=== PATIENT | female | born 1930 | race Caucasian/White ===

== ENCOUNTER 2017-06-30 09:37 | Emergency (ER) | payer MEDICARE ==
[~2017-06-30] VITALS: Ht 152.4 cm; Wt 39.6 kg
[2017-06-30] MEDS ORDERED: ondansetron/PF 4mg/2ml inj IV ONE (10:15)
[2017-06-30] MEDS ORDERED: normal saline 1000ML IV soln IVB ONE ×2 (10:15→11:30)
[2017-06-30] MEDS ORDERED: sucralfate 1gm/10ml UD suspension PO ONE (10:25)
[2017-06-30] MEDS ORDERED: mag hydrox/Alum hydrox/simeth 30ml oral suspension PO ONE (10:25)
[2017-06-30] MEDS ORDERED: LIDOcaine Viscous 15ml cup MM PRN (10:25)
[2017-06-30 10:46] LABS: CLARITY,URINE CLEAR (Clear); COLOR,URINE YELLOW (Yellow); GLUCOSE, URINE NEGATIVE (Neg); KETONES,URINE NEGATIVE (Neg); LEUKOCYTE ESTERASE ,URINE SMALL (Neg); NITRITES, URINE NEGATIVE (Neg); OCCULT BLOOD,URINE NEGATIVE (Neg); PROTEIN,URINE NEGATIVE (Neg); UROBILINOGEN,URINE 0.2 E.U/dL (0.2-1.0)
[2017-06-30 10:47] LABS: UA COLLECTION TYPE CLN CATCH MIDSTREAM
[2017-06-30 10:48] LABS: BASOPHILS % (AUTO) 0.1 % (0-1); EOSINOPHILS # (AUTO) 0.1 X10'3 (0-0.9); EOSINOPHILS % (AUTO) 1.6 % (0-6); HEMATOCRIT 35.7 % (35.0-45.0); HEMOGLOBIN 12.1 g/dl (12.0-16.0); LYMPHOCYTES # (AUTO) 1.2 X10'3 (1.1-4.8); LYMPHOCYTES % (AUTO) 22.4 % (21-51); MEAN CORPUSCULAR HEMOGLOBIN 30.4 PG (27.0-31.0); MEAN CORPUSCULAR HGB CONC 33.7 % (33.0-36.5); MEAN CORPUSCULAR VOLUME 90.1 FL (78-98); MEAN PLATELET VOLUME 9.3 FL (7.4-10.4); MONOCYTES # (AUTO) 0.5 X10'3 (0-0.9); MONOCYTES % (AUTO) 10.2 % (2-12); NEUTROPHILS # (AUTO) 3.5 X10'3 (1.8-7.7); NEUTROPHILS % (AUTO) 65.7 % (42-75); PLATELET COUNT 229 X10'3 (140-440); RED BLOOD COUNT 3.96 X10'6 (4.20-5.60); RED CELL DISTRIBUTION WIDTH 12.9 % (11.5-14.5); WHITE BLOOD COUNT 5.3 X10'3 (4.5-11.0)
[2017-06-30 10:52] LABS: INR 1.1 INR; PROTHROMBIN TIME 11.7 SECONDS (9.0-12.0)
[2017-06-30 10:54] LABS: BACTERIA,URINE FEW /HPF (Neg); MUCUS STRANDS FEW /LPF (Neg); RBC,URINE NONE SEEN /HPF (0-2); SQUAMOUS EPITHELIAL CELL,UR FEW /LPF (FEW); WBC CLUMPS,URINE FEW /HPF (NEGATIVE)
[2017-06-30 10:57] LABS: ALANINE AMINOTRANSFERASE 18 U/L (12-78); ALBUMIN 2.7 G/DL (3.4-5.0); ALKALINE PHOSPHATASE 36 IU/L (46-116); AMYLASE 33 U/L (25-115); ANION GAP 6 (8-16); ASPARTATE AMINO TRANSFERASE 28 U/L (10-37); BILIRUBIN,TOTAL 0.6 MG/DL (0.1-1.0); BLOOD UREA NITROGEN 50 MG/DL (7-18); BUN/CREATININE RATIO 30.9 (6.6-38.0); CALCIUM 7.8 MG/DL (8.5-10.1); CHLORIDE 102 MMOL/L (99-107); CREATININE 1.62 MG/DL (0.40-0.90); GLUCOSE 109 MG/DL (70-104); LIPASE 188 U/L (73-393); POTASSIUM 3.9 MMOL/L (3.5-5.1); SODIUM 135 MMOL/L (135-145); TOTAL CARBON DIOXIDE 27.1 MMOL/L (24-32); TOTAL PROTEIN 5.5 G/DL (6.4-8.2); eGFR 30 ML/MIN
[2017-06-30] MEDS ORDERED: CefTRIAXone 2gm/NS 100ml IVPB 100 ML IV ONE (11:30)
[2017-06-30] MEDS ORDERED: OMEP40CA37 PO (11:45)
[2017-06-30] MEDS ORDERED: SUCR1ORA2 PO (11:45)
[2017-06-30 13:28] VITALS: BP 148/67
== END 2017-06-30 13:30 | disposition home or self-care (01) ==
LOC: ER 09:38
DX: R10.13 Epigastric pain (principal); E11.9 Type 2 diabetes mellitus without complications
CPT/HCPCS: 36415; 80053; 81001; 82150; 82948; 83690; 85025; 85610; 87088; 96361; 96365; 96375; 99285; J0696; J2405; J7030

== ENCOUNTER 2018-11-02 12:54 | Observation (INO) | payer MEDICARE, OTHER ==
[~2018-11-02] VITALS: Ht 149.9 cm; Wt 45.5 kg
[~2018-11-02 12:54] MED LIST: SUCR1ORA2 PO
[2018-11-02] MEDS ORDERED: glucagon, human recombinant 1mg kit IM ONE (13:00)
[2018-11-02] MEDS ORDERED: dextrose 50%-water 50ml dispensing syringe IV ONE (13:05)
[2018-11-02] MEDS ORDERED: dexamethasone sod phosphate 10mg/ml inj IM STA (13:06)
[2018-11-02] MEDS ORDERED: normal saline 1000ML IV soln IVB ONE (13:10)
[2018-11-02 13:28] LABS: BASOPHILS % (AUTO) 0.4 % (0-1); EOSINOPHILS # (AUTO) 0.2 X10'3 (0-0.9); EOSINOPHILS % (AUTO) 2.7 % (0-6); HEMATOCRIT 26.9 % (35.0-45.0); HEMOGLOBIN 9.3 g/dl (12.0-16.0); LYMPHOCYTES # (AUTO) 1.8 X10'3 (1.1-4.8); LYMPHOCYTES % (AUTO) 27.5 % (21-51); MEAN CORPUSCULAR HEMOGLOBIN 31.4 PG (27.0-31.0); MEAN CORPUSCULAR HGB CONC 34.6 g/dL (33.0-36.5); MEAN CORPUSCULAR VOLUME 90.8 FL (78-98); MEAN PLATELET VOLUME 9.7 FL (7.4-10.4); MONOCYTES # (AUTO) 0.8 X10'3 (0-0.9); MONOCYTES % (AUTO) 12.5 % (2-12); NEUTROPHILS # (AUTO) 3.7 X10'3 (1.8-7.7); NEUTROPHILS % (AUTO) 56.9 % (42-75); PLATELET COUNT 221 X10'3 (140-440); RED BLOOD COUNT 2.96 X10'6 (4.20-5.60); RED CELL DISTRIBUTION WIDTH 14.1 % (11.5-14.5); WHITE BLOOD COUNT 6.5 X10'3 (4.5-11.0)
[2018-11-02 14:33] LABS: ALANINE AMINOTRANSFERASE 18 U/L (12-78); ALBUMIN 2.5 G/DL (3.4-5.0); ALBUMIN/GLOBULIN RATIO 0.9 (1.1-1.5); ALKALINE PHOSPHATASE 44 IU/L (46-116); ANION GAP 6 (8-16); ASPARTATE AMINO TRANSFERASE 36 U/L (10-37); BILIRUBIN,TOTAL 0.3 MG/DL (0.1-1.0); BLOOD UREA NITROGEN 36 MG/DL (7-18); BUN/CREATININE RATIO 24.2 (6.6-38.0); CALCIUM 7.3 MG/DL (8.5-10.1); CHLORIDE 105 MMOL/L (99-107); CREATININE 1.49 MG/DL (0.40-0.90); GLUCOSE 149 MG/DL (70-104); POTASSIUM 4.6 MMOL/L (3.5-5.1); SODIUM 136 MMOL/L (135-145); TOTAL PROTEIN 5.2 G/DL (6.4-8.2); eGFR 33 ML/MIN
--- NOTE | 2018-11-02 15:17 | NUR ---
ALERT AND COOPERATIVE. FORGETFUL. ATTENTIVE AT THE BEDSIDE. UP TO THE BSC AND VOIDED MOD AMOUNT OF URINE. ASSISTED BACK TO [facility] WITH MINIMAL ASSIST. INFORMED THAT PATIENT WAS GOING TO BE ADMITTED INPATIENT.
[2018-11-02] MEDS ORDERED: FENO200C PO (15:22)
[2018-11-02] MEDS ORDERED: IRBE150T27 PO (15:22)
[2018-11-02] MEDS ORDERED: ASPI-1265 PO (15:22)
[2018-11-02] MEDS ORDERED: CHOL100046 PO (15:22)
[2018-11-02] MEDS ORDERED: CARV-50 PO (15:22)
[2018-11-02] MEDS ORDERED: LACT1CAP65 PO (15:23)
[2018-11-02] MEDS ORDERED: glucagon, human recombinant 1mg kit SUBCUT PRN (15:40)
[2018-11-02] MEDS ORDERED: MESSAGE TO PHARMACY PO ONE (15:40)
[2018-11-02] MEDS ORDERED: acetaminophen 325mg tablet PO PRN (15:40)
[2018-11-02] MEDS ORDERED: potassium Cl 40MEQ/NS 500ml 500 ML IV PRN (15:40)
[2018-11-02] MEDS ORDERED: ondansetron/PF 4mg/2ml inj IV PRN (15:40)
[2018-11-02] MEDS ORDERED: dextrose 50%-water 50ml dispensing syringe IV PRN ×2 (15:40)
[2018-11-02] MEDS ORDERED: magnesium 2GM in 50ml NS 50 ML IV PRN (15:40)
[2018-11-02] MEDS: K and/or MAG REPLACEMENT MC SCH (15:40)
[2018-11-02] MEDS ORDERED: potassium Cl 20 mEq SR tablet PO PRN ×2 (15:40)
[2018-11-02] MEDS ORDERED: magnesium hydroxide 30ml (MOM) UD suspension PO PRN (15:40)
[2018-11-02] MEDS ORDERED: insulin Lispro (HumaLOG) vial - multi-dose SQ SCH (15:40)
[2018-11-02] MEDS ORDERED: magnesium 4gm in 100ml NS 100 ML IV PRN (15:40)
[2018-11-02] MEDS ORDERED: dextrose ORAL solution 15 GM/59 ML bottle PO PRN ×2 (15:40)
[2018-11-02] MEDS ORDERED: mag hydrox/Alum hydrox/simeth 30ml oral suspension PO PRN (15:40)
[2018-11-02] MEDS ORDERED: magnesium Cl slow-release 64mg tablet PO PRN (15:40)
[2018-11-02] MEDS ORDERED: potassium CL 10mEq/100ml bag 100 ML IV PRN (15:40)
[2018-11-02] MEDS: carVEDilol 12.5mg tablet PO SCH (20:00)
[2018-11-02] MEDS ORDERED: non-formulary drug (Lactobacillus Acidophilus (Probiotic) 1 CAP) PO SCH (20:00)
--- NOTE | 2018-11-02 20:10 | NUR ---
Received report from BACK LINE COOKELISA Perera. Pt. to follow shortly.
--- NOTE | 2018-11-02 20:15 | NUR ---
Patient arrived to floor from ER via w/c. Patient assisted into bed, and then onto BSC. Alert to name and situation.
[2018-11-02 20:20] VITALS: BP 149/47
[2018-11-02] MEDS ORDERED: insulin glargine (Lantus) pen - multi-dose SQ SCH (21:00)
[2018-11-02] MEDS: lactobacillus rhamnosus 10,000 MMU CELLS/CAPSULE PO SCH (21:58)
[2018-11-02] MEDS: heparin, porcine 5000 units/ml vial SQ SCH (21:59)
[2018-11-03] VITALS: BP 109/58
[2018-11-03 05:26] LABS: BASOPHILS % (AUTO) 0.2 % (0-1); EOSINOPHILS % (AUTO) 0.1 % (0-6); HEMATOCRIT 27.4 % (35.0-45.0); HEMOGLOBIN 9.4 g/dl (12.0-16.0); LYMPHOCYTES # (AUTO) 1.1 X10'3 (1.1-4.8); LYMPHOCYTES % (AUTO) 16.3 % (21-51); MEAN CORPUSCULAR HEMOGLOBIN 31.2 PG (27.0-31.0); MEAN CORPUSCULAR HGB CONC 34.2 g/dL (33.0-36.5); MEAN CORPUSCULAR VOLUME 91.3 FL (78-98); MEAN PLATELET VOLUME 9.4 FL (7.4-10.4); MONOCYTES # (AUTO) 0.4 X10'3 (0-0.9); MONOCYTES % (AUTO) 5.4 % (2-12); NEUTROPHILS # (AUTO) 5.1 X10'3 (1.8-7.7); PLATELET COUNT 190 X10'3 (140-440); RED BLOOD COUNT 3.01 X10'6 (4.20-5.60); WHITE BLOOD COUNT 6.6 X10'3 (4.5-11.0)
[2018-11-03 06:00] LABS: ALBUMIN 2.3 G/DL (3.4-5.0); ANION GAP 7 (8-16); BLOOD UREA NITROGEN 38 MG/DL (7-18); BUN/CREATININE RATIO 23.8 (6.6-38.0); CALCIUM 7.5 MG/DL (8.5-10.1); CHLORIDE 106 MMOL/L (99-107); GLUCOSE 168 MG/DL (70-104); MAGNESIUM 1.9 MG/DL (1.5-2.4); POTASSIUM 4.1 MMOL/L (3.5-5.1); SODIUM 136 MMOL/L (135-145); TOTAL CARBON DIOXIDE 22.6 MMOL/L (24-32); eGFR 30 ML/MIN
--- NOTE | 2018-11-03 06:59 | NUR ---
Problems reprioritized. Patient report given, questions answered & plan of care reviewed with Amber PÉREZ.Urine sample collected. Patient would not allow anyone to try putting in a new PIv during this shift.(After pulling out PIV from ER)..
[2018-11-03 07:00] VITALS: BP 118/56
[2018-11-03 07:57] LABS: CLARITY,URINE SLIGHTLY CLOUDY (Clear); COLOR,URINE YELLOW (Yellow); GLUCOSE, URINE 100 mg/dl (Neg); KETONES,URINE TRACE mg/dl (Neg); LEUKOCYTE ESTERASE ,URINE NEGATIVE (Neg); NITRITES, URINE NEGATIVE (Neg); OCCULT BLOOD,URINE NEGATIVE (Neg); PROTEIN,URINE NEGATIVE (Neg); UROBILINOGEN,URINE 0.2 E.U/dL (0.2-1.0)
[2018-11-03] MEDS: heparin, porcine 5000 units/ml vial SQ SCH (08:00)
[2018-11-03] MEDS ORDERED: vitamin D (cholecalciferol) 1,000 unit tablet PO SCH (08:00)
[2018-11-03] MEDS ORDERED: aspirin 81mg tab.chew PO SCH (08:00)
[2018-11-03] MEDS ORDERED: non-formulary drug (Fenofibrate,Micronized (Fenofibrate) 1 CAP) PO SCH (08:00)
[2018-11-03] MEDS ORDERED: losartan 50mg tablet PO SCH (08:00)
[2018-11-03] MEDS: K and/or MAG REPLACEMENT MC SCH (08:00)
[2018-11-03] MEDS ORDERED: non-formulary drug (Irbesartan 1 TAB) PO SCH (08:00)
[2018-11-03 08:14] LABS: UA COLLECTION TYPE CLN CATCH MIDSTREAM
[2018-11-03 08:15] LABS: BACTERIA,URINE 3+ /HPF (Neg); RBC,URINE 0-2 /HPF (0-2); SQUAMOUS EPITHELIAL CELL,UR FEW /LPF (FEW); WBC,URINE 0-4 /HPF (0-4)
[2018-11-03 08:16] LABS: YEAST FEW /HPF (NEGATIVE)
[2018-11-03] MEDS ORDERED: fenofibrate 145mg tablet PO SCH (08:30)
[2018-11-03] MEDS: carVEDilol 12.5mg tablet PO SCH (08:38)
[2018-11-03] MEDS: lactobacillus rhamnosus 10,000 MMU CELLS/CAPSULE PO SCH (08:38)
[2018-11-03] MEDS ORDERED: METF500T PO (09:00)
== END 2018-11-03 11:31 | disposition home or self-care (01) ==
LOC: ER 12:55 → EDBEDREQ 16:24 → INTOOBSV 20:23 → SUR 3N 20:23
PROVIDERS: ADMIT Internal Medicine; ATTEND Internal Medicine
DX: E11.649 Type 2 diabetes mellitus with hypoglycemia without coma (principal); E11.65 Type 2 diabetes mellitus with hyperglycemia; F03.90 Unspecified dementia, unspecified severity, without behavioral disturbance, psychotic disturbance, mood disturbance, and anxiety; I10 Essential (primary) hypertension; N17.9 Acute kidney failure, unspecified; E11.21 Type 2 diabetes mellitus with diabetic nephropathy; Z79.82 Long term (current) use of aspirin
CPT/HCPCS: 36415; 71045; 80048; 80053; 81001; 82948; 83036; 83735; 85025; 87070; 96361; 96372; 96374; 99284; G0378; J1100; J1644; 99285; J1815

== ENCOUNTER 2019-05-03 09:28 | Emergency (ER) | payer OTHER ==
[~2019-05-03] VITALS: Ht 162.6 cm; Wt 40.0 kg
[~2019-05-03 09:28] MED LIST changes: +ASPI-1265 PO; +CARV-50 PO; +CHOL100046 PO; +FENO200C PO; +IRBE150T27 PO; +LACT1CAP65 PO; -SUCR1ORA2 PO
--- NOTE | 2019-05-03 10:24 | NUR ---
Pt up to bedside comode. No bruising on either hip observed. Pt denies left hip pain, but complains of rt hip pain with some lt groin pain. Bruise observed on left nichols. USHA Arias arrived in room to perform assessment.
[2019-05-03 11:10] VITALS: BP 176/86
== END 2019-05-03 11:28 | disposition home or self-care (01) ==
LOC: ER 09:29
DX: S70.11XA Contusion of right thigh, initial encounter (principal); M25.551 Pain in right hip; M25.552 Pain in left hip; E78.00 Pure hypercholesterolemia, unspecified; I10 Essential (primary) hypertension; Z79.899 Other long term (current) drug therapy; Z79.82 Long term (current) use of aspirin; W18.09XA Striking against other object with subsequent fall, initial encounter; Y93.01 Activity, walking, marching and hiking; Y92.89 Other specified places as the place of occurrence of the external cause; Y99.8 Other external cause status
CPT/HCPCS: 73502; 99284